=== PATIENT | male | born 1985 | race Caucasian/White ===

== ENCOUNTER 2023-12-16 19:53 | Inpatient (IN) | payer BC, SELFPAY ==
[2023-12-16] VITALS (10 sets, daily range): BP systolic 124–166; BP diastolic 67–99; BMI 33.2; BMI 32.3
--- NOTE | 2023-12-16 12:12 | ED.GENMED ---
History of Present Illness
General
Chief Complaint: Fever
Source: patient
Exam Limitations: none
Time Seen by Provider: 12/16/23 12:00
Nursing documentation reviewed up to this point in time: agreed with
History of Present Illness
History of Present Illness:
Patient presents to ED secondary to a 3-day history of persistent posterior head and neck pain along with fever noted this morning. Denies photophobia. Patient reports 1 vomiting episode today, along with decreased appetite. Denies sore throat.
Denies difficulty with swallowing. Denies coughing. Denies nausea, vomiting, or diarrhea. Denies rash. Denies dizziness. Denies blurred vision. Denies loss of sensation or weakness. However, patient is also complaining of back, hip pain, as
well as left arm tingling sensation, since onset of his symptoms.
Past History
Past History
ED Past Medical History: None
ED Past Surgical History: Orthopedic and Tonsilectomy
Patient has exhibited threatening behavior?: No
Social History
Tobacco: Non-smoker
Personal: Single
Living: with family
Employment: Employed
Review of Systems
Review of Systems
Allergies reviewed?: Yes
All Other Systems: ROS reviewed and negative except as documented in HPI and ROS
Constitutional: Reports fever
EENT: Reports no symptoms; Denies sore throat or runny nose
Respiratory: Reports no symptoms; Denies cough or trouble breathing
Cardiac: Reports no symptoms; Denies chest pain
ABD/GI: Reports no symptoms; Denies abdominal pain, nausea, vomiting or diarrhea
: Reports no symptoms
Musculoskeletal: Reports joint pain, muscle pain, neck pain and back pain
Skin: Reports no symptoms
Neurological: Reports no symptoms
Phy Exam
Physical Exam
Physical Exam:
Physical Exam
General: mild distress, not acutely ill. febrile. nontoxic appearing
Head: nc/at. eomi
Neck: supple. diffuse neck tenderness noted, with limited ROM. normal pharynx
Heart: s1/s2 regular rate and rhythm, no murmur. equal radial pulses.
Lungs: no acute respiratory distress. clear bilaterally
Abdomen: normal bowel sounds. not tender.
Neuro: alert and oriented. no focal neurological deficits. normal speech.
Skin: no rash
Psychiatric: well kept. interactive and cooperative
Extremities: no edema. no calf tenderness.
Course
Orders/Labs/Results
Orders:
Orders
12/16/23 11:54
EKG [Electrocardiogram (*1)] Urgent
Reason for Study: Shortness of Breath
12/16/23 12:02
COVID-19 Antigen Urgent
Source: Nasal Swab
Complete Blood Count/With Diff Urgent
Comprehensive Metabolic Panel Urgent
12/16/23 12:11
0.9% Sodium Chloride 500 ml [Nss] 500 ml IV BOLUS
Acetaminophen [Tylenol] 650 mg PO NOW STA
Ketorolac [Toradol] 30 mg IV NOW STA
12/16/23 12:30
Monotest Urgent
12/16/23 14:46
0.9% Sodium Chloride 1000 ml [Nss] 1,000 ml IV BOLUS
HYDROmorphone [Dilaudid] 0.5 mg IV NOW STA
12/16/23 17:47
Add On- LAB Urgent
Tests Added?: CSF for West Nile Virus
12/16/23 17:50
CefTRIAXone [Rocephin] 2,000 mg IV NOW STA
12/16/23 17:59
Sterile Water [Sterile Water For Injection] 20 ml .ROUTE .STK-MED
12/16/23 18:03
Vancomycin [Vancocin] 2,000 mg 0.9% Sodium Chloride 500 ml [Nss] 500 ml IV NOW
12/16/23 18:24
CSF Cell Count Urgent
Date Specimen was Collected: 12/16/23
Time Specimen was Collected: 17:57
Comment: Tube #1 and Tube #4
CSF Culture with Gram Stain Urgent
JAYLA Source: Csf
Specimen Description:
Date Specimen was Collected: 12/16/23
Time Specimen was Collected: 17:57
Comment: Tube #2
Meningitis Panel, CSF by PCR Urgent
JAYLA Source: Csf
Specimen Description:
12/16/23 18:25
CSF Cell Count X Urgent
Date Specimen was Collected: 12/16/23
Time Specimen was Collected: 17:57
CSF VDRL Reflex To Titer [S] Urgent
Date Specimen was Collected: 12/16/23
Time Specimen was Collected: 17:57
Lyme PCR, DNA [S] Urgent
West Nile Virus, IgM, CSF [S] Urgent
Comment: ADD ON
12/16/23 18:26
Spinal Fluid Glucose Urgent
Date Specimen was Collected: 12/16/23
Time Specimen was Collected: 18:26
Comment: Tube #3
Spinal Fluid Protein Urgent
Date Specimen was Collected: 12/16/23
Time Specimen was Collected: 18:26
Comment: Tube #3
12/16/23 18:55
CT Head W/o Iv Contrast Stat
Comment:
Reason For Exam: headache
12/16/23 18:56
HYDROmorphone [Dilaudid] 1 mg IV NOW STA
12/16/23 19:02
Admit/Transfer Patient As Directed
Co-Sign Provider:
Level of Care: Inpatient admission
Assign to:: Telemetry
Physician / Group: Subha
Transfer to: Telemetry
Diagnosis: STEELE r/o meningitis
Reason for Telemetry: Other
Other Reason for Telemetry: sepsis
Date to Stop Telemetry: 12/18/23
Time to Stop Telemetry: 11:00
Reason for Hospitalization: steele r/o meningitis
Expected length of stay greater than two midnights?: Yes
ELOS- Estimated Length of Stay in days: 2
I certify the patient meets the requirements for IP care: Yes
PRN Pain Medication Management As Directed
May give lesser potent ordered pain med per pt: Yes
preference::
Protocol:: Medication orders for pain may be administered in a
manner that supports deferring to patient preference
when the pt is:
- Requesting an ordered lesser potent pain medication.
Least to most potent pain medications are defined
as: acetaminophen < NSAID < tramadol < opioids
(morphine, oxycodone, hydromorphone).
- Requesting a lesser dose of the same medication IF
ORDERED.
- Requesting a less intrusive route of administration
if both routes are prescribed by the provider (PO <
IV).
12/16/23 19:03
Code Status As Directed
Resuscitation Status: Full Code
12/16/23 19:10
Rapid Strep Group A Urgent
JAYLA Source: Throat/Pharynx
Specimen Description:
Date Specimen was Collected: 12/17/23
Time Specimen was Collected: 07:45
12/16/23 19:18
CR Chest Portable - 1 View Urgent
Comment:
Reason For Exam: fever, r/o pna
Reason Study Needs to be Portable: Unable to Transport
12/16/23 19:35
HydrALAZINE [Apresoline] 5 mg IV Q6HPRN PRN
12/16/23 20:00
Flush (0.9% Sodium Chloride) [Flush (Nss)] See Dose Instructions IV PER PROTOCOL
12/16/23 20:12
Influenza A+B Rapid Molecular Stat
JAYLA Source: Nasal Swab
Specimen Description:
12/16/23 20:25
Lactate Level [Lactic Acid] Urgent
Blood Culture Routine
JAYLA Source: Blood/Venous
Specimen Description:
Blood Culture Urgent
JAYLA Source: Blood/Venous
Specimen Description:
12/16/23 20:35
0.9% Sodium Chloride 1000 ml [Nss] 1,000 ml IV 100 mls/hr
Acetaminophen [Tylenol] 650 mg PO Q4HPRN PRN
Bisacodyl [Dulcolax] 10 mg RECTAL [id number] PRN
Calcium Carbonate Chewable [Tums] 1 tablet PO QIDPRN PRN
Docusate W/Senna [Senokot-S] 1 tablet PO BIDPRN PRN
HYDROmorphone [Dilaudid] 0.5 mg IV Q4HPRN PRN
Ketorolac [Toradol] 10 mg IV Q6HPRN PRN
Ondansetron Injectable [Zofran] 4 mg IV Q6HPRN PRN
Polyethylene Glycol Powder [Miralax] 17 grams PO DAILYPRN PRN
12/16/23 20:35
INFECTIOUS DISEASE CONSULT Routine
Consulting Provider: Apolonia Correia
Was physician already notified: Yes
Reason for consult: sepsis, suspect meningitis
Activity As Directed
Activity Level: As Tolerated
Neurological Checks As Directed
Frequency: Per unit guidelines
Vital Signs As Directed
Frequency: Per unit guidelines
DX Deep Vein Thrombosis Video Routine
12/16/23 22:00
Dexamethasone Sod Phosphate [Decadron] 10 mg IV Q6H
12/17/23 Breakfast
Regular
At Your Request: Full Participation
Complete Blood Count/With Diff IN AM
CefTRIAXone [Rocephin] 2,000 mg IV Q12H
12/17/23 18:00
Enoxaparin Sodium [Lovenox] 40 mg SC QPM
12/18/23 11:00
DC Protocol for Telemetry ONCE
Abnormal Lab Results
12/16/23 12/16/23
12:02 18:26
RBC 4.35 L 10^6/uL
(4.70-6.10)
MCH 32.9 H pg
(27.0-31.0)
MPV 10.8 H fL
(7.4-10.4)
Absolute Neuts (auto) 7.0 H 10^3/uL
(1.4-6.5)
Absolute Lymphs (auto) 0.5 L 10^3/uL
(1.2-3.4)
Neutrophils % 87.5 H %
(42.2-75.2)
Lymphocytes % 5.9 L %
(20.5-51.1)
Glucose 102 H mg/dl
(70-99)
ALT 57 H U/L
(0-50)
CSF Total Protein 85 H mg/dl
(12-60)
12/16/23 12:02
12/16/23 12:02
Vital Signs
Initial and Last Documented VS:
Initial Vital Signs
Temp Pulse Resp BP Pulse Ox
102.2 F H 101 16 166/98 98
12/16/23 11:30 12/16/23 11:30 12/16/23 11:30 12/16/23 11:30 12/16/23 11:30
Last Documented Vital Signs
Temp Pulse Resp BP Pulse Ox
97.9 F 84 18 134/68 95
12/17/23 03:21 12/17/23 03:21 12/17/23 03:21 12/17/23 03:21 12/17/23 03:21
Procedures
Lumbar Puncture
Indication for procedure:: fever/headache/neck stiffness
Procedure completed by: Caleb Howell M.D.
Consent form signed: Yes
Anesthesia/sedation: 1% Lidocaine
Preparation: cleaned with Betadine
Position: sitting
Needle Size: 22 gauge
Needle Type: Lumbar Needle
Number of attempts: 1
Dressing applied to puncture site: bandaid
Complications: none
MDM/Problems Addressed
MDM/Problems Addressed:
Although patient remains neurologically intact with mild improvement symptoms, patient continues to exhibit persistent severe headache along with neck pain. In light of patient's other body ache and joint pain, symptoms likely viral in nature.
However, difficult to exclude meningitis entirely. After discussion with patient and family, decision made to perform lumbar puncture. Risks and benefits discussed with patient.
Procedure consent on the chart.
Lumbar puncture successful after 1 attempt with clear fluid. Spinal fluid analysis ordered. Empiric antibiotic coverage via vancomycin/Rocephin ordered.
Patient remains hemodynamically and neurologically intact after procedure.
Critical care statement: A total of 40 minutes of critical care time was provided for this patient. This includes management of unstable vital signs, evaluation of the patient at bedside, reviewing the patient's pertinent medical records, review of
old EKGs and review of pertinent medical records. This time with separate from time utilized to perform the aforementioned documented procedures
*Critical Care Note
Total Time (30-74mins, 75-104mins- exclusive of procedures): Not Applicable
ED Attending Note
-
Portions of this chart may have been created with voice recognition software.� Occasional wrong word or��sound alike� substitutions may have occurred due to the inherent limitations of voice recognition software.
Discharge Plan
Departure
Patient Disposition: Admit
Date of Disposition: 12/16/23
Time of Disposition: 17:54
Admit to: Med/Surg
Presentation/result/management discussed w/ accepting MD/DO: Hospitalist
Discharge Problem:
Headache, Fever
Interventions
Interventions:
*Risk Screen - Suicide Last Done: 12/16/23 20:51
*General Assessment Last Done: 12/16/23 11:52
*Neglect/Abuse Screening Last Done: 12/16/23 11:52
ED- Fall Risk Assessment Last Done: 12/16/23 14:06
*ED COVID-19 Vaccine History Last Done: 12/16/23 11:52
*Nursing Disposition Last Done: 12/16/23 20:00
ED- Neurological Assessment Last Done: 12/16/23 14:06
ED-Skin Assessment Last Done: 12/16/23 14:06
Discharge Date and Time
Discharge Date/Time: 12/16/23 20:35
[2023-12-16] MEDS: TYLENOL 650 MG PO (12:21)
[2023-12-16] MEDS: TORADOL 30 MG IV (12:21)
[2023-12-16] MEDS: NSS 500 IV (12:22)
[2023-12-16 12:25] LABS: ALT (SGPT) 57 U/L (0-50); AST (SGOT) 57 U/L (17-59); Albumin 4.8 g/dl (3.5-5.0); Alkaline Phosphatase 112 U/L (38-126); Blood Urea Nitrogen 11 mg/dl (9-20); Calcium 9.8 mg/dl (8.4-10.2); Carbon Dioxide 24 mmol/L (22-30); Chloride 105 mmol/L (98-107); Estimated Creatinine Clearance 119 ml/min; Glucose 102 mg/dl (70-99); Potassium 4.4 mmol/L (3.5-5.1); Sodium 142 mmol/L (135-145); Total Bilirubin 1.3 mg/dl (0.2-1.3); Total Protein 7.6 g/dl (6.3-8.2); eGFR > 60.00
[2023-12-16 12:29] LABS: COVID-19 Antigen Negative (Negative)
[2023-12-16 12:30] LABS: % Basophils 0.3 % (0-2); % Immature Granulocytes 0.4 % (0-0.5); % Lymphocytes 5.9 % (20.5-51.1); % Monocytes 5.9 % (1.7-9.3); % Neutrophils 87.5 % (42.2-75.2); Absolute Lymphocytes 0.5 10^3/uL (1.2-3.4); Absolute Monocytes 0.5 10^3/uL (0.1-0.6); Hematocrit 40.5 % (39.0-52.0); Hemoglobin 14.3 g/dL (13.0-18.0); Mean Corp Hgb Conc. 35.3 g/dL (33.0-37.0); Mean Corpuscular Hgb 32.9 pg (27.0-31.0); Mean Corpuscular Volume 93.1 fL (80.0-94.0); Mean Platelet Volume 10.8 fL (7.4-10.4); Nucleated Red Blood Cells % 0 % (-); Platelet Count 219 10^3/uL (130-400); Red Blood Cell Count 4.35 10^6/uL (4.70-6.10); Red Cell Dist. Width 12.4 % (11.5-14.5); White Blood Cell Count 7.9 10^3/uL (4.8-10.8)
[2023-12-16 13:40] LABS: Monotest Negative (Negative)
[2023-12-16] MEDS: NSS 1000 IV ×2 (15:05→22:37)
[2023-12-16] MEDS: DILAUDID 0.5 MG IV ×2 (15:05→21:08)
[2023-12-16] MEDS: ROCEPHIN 2000 MG IV (18:09)
--- NOTE | 2023-12-16 19:10 | HPS.HSE ---
Addendum entered and electronically signed by Leal Mascorro DO 12/16/23 19:46:
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 Would likely need screening for metal if MRI to be performed.
Original Note:
Family Physician
-
Family Physician: Danielle Rizo
Chief Complaint
-
Intractable STEELE x Sunday Night
History of Present Illness
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 Pt states Sunday he developped a frontal and posterior
headache (denying radiation). Pain 10/10, 'feels like im getting kicked in the head repeatedly.' States symptoms are more severe than prior migraines. Also endorses neck stiffness and midline back tenderness extending to lower back. Endorses
generalized weakness and limited PO intake. +nausea with 1episode of NBNB emesis today. Pain improved from a 10/10 to a 7/10 after dilaudid and toradol, now back to 9/10. Denies photophobia/phonophobia. Denies recent travel history or known insect
bites. does report that his nephew was recently sick with PNA about 1 week ago but otherwise no sick contacts.
Denies dizziness/LH, CP, palps, wheezing, cough, sob, abd pain, n/v/d/c, dysuria, calf or leg pain.
ER course: Pt presents Tmax 102.2-> 98.3, HR 101->84, RR 14-24, BP 166/98, other V.S.S. CBC/BMP wnl. ALT 57, other LFTs wnl. COVID (-). S/P LP with initiation of vanco/rocephin. Also given 1L NS bolus x 2, Tylenol 650mg, Dilaudid 0.5mg IV, and
Toradol 30mg IV in ER.
Medical History
Past Medical History
Past Medical History: Reports Other (Migraines, Pancreatitis)
Past Surgical History: Reports Other (Left Elbow Sx, Tonsilectomy, Left ACL/MCL repair, Right ACL/PCL repair)
Social History
Tobacco: Non-smoker
Alcohol: Occasional (social)
Drug: None
Personal:
Living: With Family
Family History
Family History: Other (Father with CAD s/p OK, HTN/HLD)
Allergies / Home Medications
Allergies reflects when Allergies were last updated in [facility].
Home Medications with original date entered in [facility]
Allergy/Medication List:
Allergies
Allergy/AdvReac Type Severity Reaction Status Date / Time
No Known Allergies Allergy Verified 12/16/23 11:33
Home Medications
acetaminophen 500 mg tablet (Tylenol Extra Strength) 1,000 mg PO Q6HPRN PRN mild pain/fever 12/16/23
calcium carbonate (Tums) 400 mg PO QIDPRN PRN stomach issues 12/16/23
ibuprofen 200 mg tablet 400 mg PO Q6HPRN PRN mild pain 12/16/23
Review of Systems
-
A 12 point ROS was completed and negative except as noted: Yes
Physical Exam
Vital Signs
Vital Signs
Temp Pulse Resp BP Pulse Ox
98.3 F 84 17 152/88 99
12/16/23 16:00 12/16/23 17:00 12/16/23 17:00 12/16/23 17:00 12/16/23 17:00
Physical Exam
General: Well Developed, Well Nourished and Other (Uncomfortable in apparent pain. )
HEENT: NormoCephalic, Atraumatic, Good Dentition, PERRLA, [place] Conjunctivae, No Ptosis and Other (+Midline neck tenderness. ); No Pharyngeal Erythema
Respiratory: Clear
Cardiac: S1/S2, Regular Rhythm and Tachycardia; No Murmur or Rub
GI: Soft, Non Tender, Non Distended and Normal Bowel Sounds; No Organomegaly
Rectal: Deferred by Provider
Genito-urinary: No costovertebral tender; No Gómez
Musculoskeletal: No Clubbing, No Cyanosis and No Edema
Skin: Warm and Dry; No Rash
Neuro: Awake, Alert, Oriented, AO x 3 and Other (General 4/5 weakness B/L LE. +kernig/brudzinski sign. )
Psych: Anxious
Laboratory Results
-
12/16/23 12:02
12/16/23 12:02
Laboratory Results
Total Bilirubin 1.3 mg/dl (0.2-1.3) 12/16/23 12:02
AST 57 U/L (17-59) 12/16/23 12:02
ALT 57 U/L (0-50) H 12/16/23 12:02
Alkaline Phosphatase 112 U/L (38-126) 12/16/23 12:02
Data Reviewed
-
Diagnostic Radiology: Image Personally Visualized and interpreted
Medical Tests (Nuc Med, Echo, EKG etc): Image Personally Visualized and interpreted (EKG: NSR @ 89bpm, No acute ischemic changes, Nonspecific ST/Twave change, QTC 411ms. )
Lab Data: Labs Reviewed by me
Impression/Plan
-
Intractable Headache / N / V / Hx Migraines
Sepsis / Fever
- Pt present +3/4 SIRS (Tmax 102.2, HR 101, RR 24, no leukocytosis) with intractable headache and concern for nuchal rigidity with (+) kernig/brudzinski; HD stable
- Assess other sources of infection - obtain Flu, rapid strep, blood cultures x and CXR for completeness. LA ordered
- COVID negative. Monospot negative.
- LP performed in ER, follow up fluid studies
- S/P vanco/rocephin in ER. Will continue with addition of acyclovir 100mg IV q8h and dexamethasone 10mg IV Q6h
- CT brain not obtained prior to LP, will obtain stat
- Consider contrast enhanced MRI pending results
- Continue Tylenol, Toradol, and Prn Dilaudid
- IVF. Prn antiemetics
- Consult Infectious Disease for evaluation
- Consider neurology consult as needed.
Hypertension
- Likely 2/2 intractable headache, monitor for improvement with treatment as above
- EKG unremarkable
- Prn hydralazine 5mg IV Q6h for SBP > 180mmHg in antihypertensive naive pt
Diet - Regular
DVT PPx - Lovenox
Code Status: Full
[2023-12-16 19:19] LABS: Spinal Fluid Glucose 57 mg/dl (40-70); Spinal Fluid Protein 85 mg/dl (12-60)
[2023-12-16] MEDS: VANCOCIN 540 MG IV (19:30)
[2023-12-16] MEDS: DILAUDID 1 MG IV (19:31)
[2023-12-16 20:23] LABS: CSF Tube # 4
[2023-12-16 20:28] LABS: CSF Color Other; CSF Tube # Clarity Hazy; Red Cell Count/CSF 2044 mm^3; White Blood Cell Count/CSF 0 mm^3 (0-5)
[2023-12-16 20:29] LABS: CSF Clarity Clear; CSF Color Colorless; CSF Tube # 1; Red Cell Count/CSF 758 mm^3; White Cell Count/CSF 1 mm^3 (0-5)
[2023-12-16 20:44] LABS: Lactic Acid 0.8 mmol/L (0.7-2.0)
--- NOTE | 2023-12-16 21:08 | PHA.VAN.IN ---
Assessment
- Assessment
Renal Function: Appears similar to baseline
Maximum Temperature: 102.2 F
Concomitant Antimicrobials: CEFTRIAXONE, ACYCLOVIR
AUC Dosing Plan
- Empiric Dosing
Initial / Loading Dose: VANCO 2000MG X1
Maintenance Regimen: VANCO 1500 MG Q12H
Estimated AUC (mcg*h/mL): 527
Estimated Peak (mcg*h/mL): 35.6
Estimated Trough (mcg/ml): 12
Estimated Half Life (H): 6.7
- Monitoring
No levels ordered at this time: CONSIDER LEVEL PRIOR TO 4TH MAINTENANCE DOSE
Pharmacokinetics Vancomycin I
- -
Patient Age: 38
Patient Sex: Male
Vancomycin Day #: 1
Indication: Head Batcher Infection
Requesting Provider: ELIZABETH
Height / Weight:
Height 5 ft 9 in
Actual Weight 99.082 kg
IBW in k.7
Adjusted BW in k
Pertinent Past Medical History: Migraines, Pancreatitis
- Vital Signs / Lab Results
Temp Pulse Resp BP Pulse Ox
97.6 F 87 18 146/73 94
12/16/23 20:41 12/16/23 20:41 12/16/23 20:41 12/16/23 20:41 12/16/23 20:41
Lab Results - Hematology
12/16/23
12:02
WBC 7.9
Lab Results - Chemistry
12/16/23
12:02
BUN 11
Creatinine 1.0
Estimated Creat Clear 119
Albumin 4.8
12/16/23
20:25
Lactic Acid 0.8
Microbiology Results
12/16/23 18:26 Gram Stain - Preliminary
Csf
12/16/23 18:24 Meningitis/Encephalitis Panel (PCR) - Final
Csf
12/16/23 20:12 Influenza Types A & B (SANDRA) - Final
Nasal Swab Negative for Influenza A & B, NAAT
Negative results must be combined with clinical observations
and patient history.
Nucleic Acid Amplification test (NAAT)performed on the
[employer] platform.
[2023-12-16] MEDS: ZOVIRAX INJECTION 114 MG IV (22:37)
[2023-12-16] MEDS: DECADRON 10 MG IV (22:37)
[2023-12-17] MEDS: DILAUDID 0.5 MG IV ×2 (02:58→20:25)
[2023-12-17 03:21] VITALS: BP 134/68
[2023-12-17] MEDS: DECADRON 10 MG IV ×4 (05:10→21:13)
[2023-12-17] MEDS: ZOVIRAX INJECTION 114 MG IV (05:10)
[2023-12-17] MEDS: VANCOCIN 300 ML IV (06:23)
[2023-12-17] MEDS: VANCOCIN 300 MG IV (06:23)
[2023-12-17] MEDS: ROCEPHIN 2000 MG IV (06:23)
[2023-12-17 06:45] VITALS: BP 128/67
[2023-12-17] MEDS: TORADOL 10 MG IV (08:02)
[2023-12-17] MEDS: FLUSH (NSS) 1 FLUSH IV (08:03)
[2023-12-17 08:43] LABS: Hematocrit 37.8 % (39.0-52.0); Hemoglobin 13.3 g/dL (13.0-18.0); Mean Corp Hgb Conc. 35.2 g/dL (33.0-37.0); Mean Corpuscular Hgb 33.8 pg (27.0-31.0); Mean Corpuscular Volume 96.2 fL (80.0-94.0); Mean Platelet Volume 10.9 fL (7.4-10.4); Platelet Count 209 10^3/uL (130-400); Red Blood Cell Count 3.93 10^6/uL (4.70-6.10); Red Cell Dist. Width 12.2 % (11.5-14.5); White Blood Cell Count 7.6 10^3/uL (4.8-10.8)
[2023-12-17 08:52] LABS: ALT (SGPT) 46 U/L (0-50); AST (SGOT) 41 U/L (17-59); Alkaline Phosphatase 95 U/L (38-126); Blood Urea Nitrogen 13 mg/dl (9-20); Carbon Dioxide 21 mmol/L (22-30); Chloride 105 mmol/L (98-107); Direct Bilirubin 0.3 mg/dl (0.0-0.4); Estimated Creatinine Clearance > 125 ml/min; Glucose 139 mg/dl (70-99); Potassium 4.5 mmol/L (3.5-5.1); Sodium 140 mmol/L (135-145); Total Bilirubin 0.8 mg/dl (0.2-1.3); Total Protein 6.7 g/dl (6.3-8.2); eGFR > 60.00
[2023-12-17 09:34] LABS: Absolute Neutrophils -Man Diff 6.8 10^3/uL (1.4-6.5); Band Neutrophils 13 % (0-3); Lymphocytes 8 % (20-51); Monocytes 2 % (2-9); Normal RBC Morphology Yes; Platelets Checked Yes; Segmented Neutrophils 77 % (42-75); Total Cells Counted 100
--- NOTE | 2023-12-17 10:49 | PHA.VAN.FU ---
Vancomycin Assessment / Plan
- Assessment
Renal Function: SCR Decreasing (1.0>0.7)
WBC's are: Trending Down (7.9>7.6)
In the past 24 hrs, patient has been: Febrile (Tmax 102.2 on 12/16/23 at 11:30, currently afebrile)
Concomitant Antimicrobials: Ceftriaxone, Acyclovir
- Dosing Plan
Continue: Vancomycin 1500mg IV Q12hrs
- Monitoring Plan
Peak Level: Ordered for 12/18/23 at 21:00
Trough Level: Ordered for 12/19/23 at 05:30
- Follow Up
Pharmacy will continue to follow.
Vancomycin Follow UP
- -
Patient Age: 38
Patient Sex: Male
Vancomycin Day #: 2
Indication: Residence Leasing Agent Infection
Requesting Provider: Dr. Bertha JOHNSON
Pertinent Antimicrobial Allergies:
No antibiotic allergies
Height / Weight:
Height 5 ft 9 in
Actual Weight 99.082 kg
IBW in k.7
Adjusted BW in k
Pertinent Past Medical History: Migraines, Pancreatitis
- Vital Signs / Lab Results
Temp Pulse Resp BP Pulse Ox
98.1 F 85 18 128/67 100
12/17/23 06:45 12/17/23 06:45 12/17/23 06:45 12/17/23 06:45 12/17/23 06:45
Lab Results - Hematology
12/16/23 12/17/23
12:02 07:30
WBC 7.9 7.6
Band Neutrophils 13 H
Lab Results - Chemistry
12/16/23 12/17/23
12:02 07:30
BUN 11 13
Creatinine 1.0 0.7
Estimated Creat Clear 119 > 125
Albumin 4.8 4.0
12/16/23
20:25
Lactic Acid 0.8
Microbiology Results
12/16/23 18:24 CSF Culture - Preliminary
Csf No Growth After 18-24 Hours
Gram Stain - Preliminary
12/17/23 07:47 Streptococcus Rapid Screen - Final
Throat/Pharynx Rapid Strep Screen (Group A) Negative
12/16/23 18:24 Meningitis/Encephalitis Panel (PCR) - Final
Csf
12/16/23 20:12 Influenza Types A & B (SANDRA) - Final
Nasal Swab Negative for Influenza A & B, NAAT
Negative results must be combined with clinical observations
and patient history.
Nucleic Acid Amplification test (NAAT)performed on the
[employer] platform.
--- NOTE | 2023-12-17 10:50 | W.PN.HOSP.TC ---
Addendum entered and electronically signed by Marquita Medina MD 12/17/23 13:59:
*in reviewing chest-x-ray there is a RLL Pneumonia
-antibiotics changed to ceftriaxone/Azithromycin
Original Note:
Today's Communication/Plan
-
see plan
Assessment / Plan
Assessment / Plan
Mr. Kip Mcdonough is a 38 yo man with hx migraine headaches, pancreatitis, possible remote SJS presents to the ER with headache over 48 hours with associated neck stiffness, midline back tenderness, nausea/vomiting. s/p LP in ER with CSF showing 0
WBC, many RBC, no xanthochromia. He was admitted for treatment meningitis.
Intractable Headache / N / V / Hx Migraines
Sepsis / Fever
- Pt present +3/4 SIRS (Tmax 102.2, HR 101, RR 24, no leukocytosis) with intractable headache and concern for nuchal rigidity with (+) kernig/brudzinski; HD stable
- flu, strep, covid negative, monospot negative
- meningitis panel negative
- awaiting testng for lyme, syphilis, [place]
- concern with number of RBC in tube, I texted neurosurgery who is less concerned given no Xanthochromia. I will order stat CTA (discussed with RN).
- continue antibiotics/antiviral
- ID consult
- neurology consult
- discussing case with neurosurgery
Hypertension
- Likely 2/2 intractable headache, monitor for improvement with treatment as above
- EKG unremarkable
- Prn hydralazine 5mg IV Q6h for SBP > 180mmHg in antihypertensive naive pt
Diet - Regular
DVT PPx - SCD
Code Status: Full
51 minutes spent on patient care
Anticipated Discharge: > 48 hours
Subjective/Interval History
-
Date of Service: December 17, 2023
continues to have headache, comes and goes. neck pain a little less
pins and needles in arm and + hip pain
Objective Data
-
Labs:
Laboratory Results
12/17/23
07:30
WBC 7.6
Hgb 13.3
Hct 37.8 L
Plt Count 209
Sodium 140
Potassium 4.5
Chloride 105
Carbon Dioxide 21 L
BUN 13
Creatinine 0.7
Glucose 139 H
Calcium 9.0
Total Bilirubin 0.8
AST 41
ALT 46
Alkaline Phosphatase 95
Vital Signs:
Vital Signs
Temp Pulse Resp BP Pulse Ox
98.1 F 85 18 128/67 100
12/17/23 06:45 12/17/23 06:45 12/17/23 06:45 12/17/23 06:45 12/17/23 06:45
I&O
12/16/23 12/17/23 12/18/23
06:59 06:59 06:59
Intake Total 3080 / 3080
Balance 3080 / 3080
Review of Systems
-
History Source: Patient
All other systems: Reviewed and negative
Physical Exam
-
General: Other (appears in pain 2/2 headache )
HEENT: PERRLA
Respiratory: Clear to Auscultation; Negative Wheezes
Cardiac: Regular Rhythm and S1/S2
GI: Soft and Nontender
Musculoskeletal: No Edema
Skin: Warm and Dry; Negative Rash
Neuro: AO x 3
Psych: Calm
Data Reviewed
-
Diagnostic Radiology: Report Reviewed by me
Labs: Labs Reviewed by me
[2023-12-17 11:15] VITALS: BP 118/68
--- NOTE | 2023-12-17 12:11 | CON.NEURO4 ---
Addendum entered and electronically signed by Pete Peña MD 12/18/23 20:59:
CSF Glucose 57. CSF Protein 85. CSF ID panel Negative.
Original Note:
Consultation - Neurology 4
-
CONSULTING PHYSICIAN: Pete Peña MD(Neurology)
REFERRING PHYSICIAN: Hospitalist
DICTATED BY: Pete Peña MD
DATE/TIME OF REQUEST: 12/17/2023
DATE/TIME OF CONSULTATION: 12/17/2023
Reason for Consultation: Headaches
History of Present Illness:
This is a 38 year old right handed male who has presented to the hospital with chief complaint of headaches. He gives a h/o chronic headaches since middle school. Headaches preceded by aura of scintillations and scotoma left visual field controlled
with Excedrin. Headaches throbbing bifrontal occurs monthly controlled with Excedrin.
Never on prophylactic. Never eval by Neurology. No family h/o migraines.
Pat was in his USOH till SundayDec 13. Started having a sore neck later developed occipital headaches. Throbbing pounding pain not relieved with Excedrin.
Headache worse with sitting up post LP
Came to ER on Sunday. Underwent LP. Traumatic tap RBC 4500. No WBC
On my exam pat c/o neck pain radiating into his left shoulder and left hand-tingling pins and needle localized to thumb and index finger
Past Medical History: Migraines
Surgical History: Left ACL/MCL repair Right ACL/PCL repair Left Elbow Sx
Family History: Son-Asthma
Social History: Lives at home with his and son
Allergies: None
Home Medications: Excedrin
Review of Symptoms:
Patient has fever, headache and shortness of breath.
�Per the HPI.�All systems are reviewed negative except above.
�-
Vital Signs:
The patient has a Temp 36.6 C Pulse 77 Resp 18 BP 118/68 Pulse Ox 92
Physical Exam:
The patient is febrile, heart sounds S1 and S2 are regular, and chest is decreased air entry on (R).
- If not clear, describe.
Neurologic Examination:
The patient is awake, alert and oriented x 3. He is able to follow commands and answer questions appropriately. There is no aphasia or dysarthria.
On cranial nerve assessment, pupils are 3 mm bilateral, round and reactive to light and accommodation. Visual valdes are full. Extraocular movements are intact. Facial sensations are intact and bilaterally symmetrical, there is no facial asymmetry.
Hearing is intact bilaterally to normal conversation volume. Tongue palate and uvula are midline. Sternocleidomastoid strengths are full bilaterally.
Motor strengths are 5/5 bilateral upper and lower extremities on medical research [place] scale. There is no drift or involuntary movement noted. Deep tendon reflexes are 2+ bilateral upper and lower extremities and Babinski is absent bilaterally.
Sensations of pain, touch, temperature and vibration are intact and bilaterally symmetrical. There was no extinction noted on double simultaneous stimulation. Coordination is intact by finger to nose bilaterally.
Lab Results:
Neuro Imaging: CT Head: WNL
CXR: Moderate to large airspace consolidation in the right lower lung consistent with pneumonia in the right lower and/or middle lobes. Enlarged right hilum suggesting reactive lymphadenopathy.
Impression:
Mr. SHANTI OLEARY is a 38 year old M who has presented to the hospital with (symptoms/chief complaint) of headaches with traumatic spinal tap.
Pat has new RLL Pneumonia
Differentials for the patient's presentation include:
1. Migraine
2. Cervical radiculopathy
3. Post LP headaches(CSF leak)
Recommendations:
1. ID consult for pneumonia
2. IV antibiotics as per ID recomm
3. Baclofen 10mg TID
4. Motrin 600-800mg prn
5. Amitriptyline 25mg Qhs
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
Discussed patient care with: ID, Hospitalist and patient
Allergies
-
Allergies
Allergy/AdvReac Type Severity Reaction Status Date / Time
No Known Allergies Allergy Verified 12/16/23 11:33
Vital Signs and Labs
-
Vital Signs and Labs:
Vital Signs
Temp Pulse Resp BP Pulse Ox
36.6 C 77 18 118/68 92
12/17/23 11:15 12/17/23 11:15 12/17/23 11:15 12/17/23 11:15 12/17/23 11:15
Lab Results
12/17/23 07:30
12/17/23 07:30
Sodium 140 mmol/L (135-145) 12/17/23 07:30
Potassium 4.5 mmol/L (3.5-5.1) 12/17/23 07:30
BUN 13 mg/dl (9-20) 12/17/23 07:30
Glucose 139 mg/dl (70-99) H 12/17/23 07:30
Calcium 9.0 mg/dl (8.4-10.2) 12/17/23 07:30
Medications
-
Active Medications
Generic Name Dose Route Start Last Admin
Trade Name Freq PRN Reason Stop Dose Admin
Acetaminophen 650 mg 12/16/23 20:35
Acetaminophen 325 Mg Tablet PO 01/13/24 20:34
Q4HPRN PRN
mild pain/STEELE/temp> 100.4F
Bisacodyl 10 mg 12/16/23 20:35
Bisacodyl 10 Mg Rectal Suppository RECTAL 01/13/24 20:34
[id number] PRN
constipation
Calcium Carbonate 1 tablet 12/16/23 20:35
Calcium Carbonate 500 Mg (Regular-Strength) Chew Tablet PO 01/13/24 20:34
QIDPRN PRN
stomach issues
Ceftriaxone Sodium 2,000 mg 12/17/23 06:00 12/17/23 06:23
Ceftriaxone 2,000 Mg/20 Ml Vial IV 2,000 mg
Q12H RAFIQ Administration
Dexamethasone Sodium Phosphate 10 mg 12/16/23 22:00 12/17/23 10:43
Dexamethasone (4 Mg/Ml) 20 Mg/5 Ml Vial IV 01/13/24 21:59 10 mg
Q6H RAFIQ Administration
Hydralazine HCl 5 mg 12/16/23 19:35
Hydralazine 20 Mg/Ml Vial IV 01/13/24 19:34
Q6HPRN PRN
SBP greater than 180 mmHg
Hydromorphone HCl 0.5 mg 12/16/23 20:35 12/17/23 02:58
Hydromorphone 0.5 Mg/0.5 Ml Syringe IV 12/30/23 20:34 0.5 mg
Q4HPRN PRN Administration
severe pain
Sodium Chloride 1,000 mls @ 100 mls/hr 12/16/23 20:35 12/16/23 22:37
Nss IV 1,000 mls
.Q10H RAFIQ Administration
Vancomycin HCl 1,500 mg/ 300 mls @ 200 mls/hr 12/17/23 06:00 12/17/23 06:23
Sodium Chloride 20 ml/ Sodium IV 300 mls
Chloride Q12H RAFIQ Administration
Protocol
Acyclovir Sodium 700 mg/ 114 mls @ 100 mls/hr 12/16/23 22:00 12/17/23 05:10
Sodium Chloride IV 12/26/23 21:59 114 mls
Q8H RAFIQ Administration
Ondansetron HCl 4 mg 12/16/23 20:35
Ondansetron 4 Mg/2 Ml Vial IV 01/13/24 20:34
Q6HPRN PRN
nausea and vomiting
Polyethylene Glycol 17 grams 12/16/23 20:35
Polyethylene Glycol Powder 17 Grams Packet PO 01/13/24 20:34
DAILYPRN PRN
constipation
Senna/Docusate Sodium 1 tablet 12/16/23 20:35
Docusate W/Senna (Shanita-Colace) Tablet PO 01/13/24 20:34
BIDPRN PRN
constipation
Sodium Chloride 0 flush 12/16/23 20:00 12/17/23 08:03
Sodium Chloride 0.9% (Flush) Syringe IV 01/13/24 19:59 1 flush
PER PROTOCOL RAFIQ Administration
Home Medications
�Medication �Instructions �Recorded
acetaminophen 500 mg tablet 1,000 mg PO Q6HPRN PRN mild 12/16/23
(Tylenol Extra Strength) pain/fever
calcium carbonate (Tums) 400 mg PO QIDPRN PRN stomach issues 12/16/23
ibuprofen 200 mg tablet 400 mg PO Q6HPRN PRN mild pain 12/16/23
--- NOTE | 2023-12-17 12:35 | CON.ID ---
Consultation
-
Date/Time Consultation Requested: December 16, 20232034
Date/Time Consultation Performed: December 17, 2023 1230
Requesting Provider: Dr. Lela Mascorro
Performing Provider: Dr Apolonia Correia
Reason for Consultation: STEELE, fever
Chief Complaint / Past History
Chief Complaint
Neck pain and headache
History of Present Illness
38-year-old male with history of migraine headaches who developed acute onset of neck pain/stiffness on Sunday, December 13. Pain radiated to the front and back of his head. Headache different from his migraines. Positive chills. He did not notice
fever at home until he came to the ER yesterday with temperature of 102.2. Positive bandemia 13%. He underwent LP then was started on vancomycin/ceftriaxone/acyclovir. The CSF fluid showed 0-1 white blood cells. Meningoencephalitis panel
negative. Antibiotics discontinued. Admission head CT negative. Chest x-ray shows right lower lobe pneumonia. Per she noted the patient has been coughing Sunday into Sunday. Patient denies sputum production. His 10-year-old son who has
asthma is also coughing. Recent visits to [facility] 2 weeks ago, and last weekend. Today he still has headache and stiff neck. No recent injury or neck strain. No mosquito bites.
Past History
Additional Past Medical History:
Migraine headaches
Pancreatitis
?h/o Strep toxic shock syndrome, in college
Left ACL/MCL repair
Right ACL/PCL repair
Left Elbow Sx
Allergy History:
No Known Allergies Allergy (Verified 12/16/23 11:33)
Medications Reviewed: Yes
Current Antibiotics:
Ceftriaxone 2g IV q12
Vancomycin -> dc'd
Acylovir -> dc'd
Social History
Tobacco: Non-Smoker
Alcohol: Occasional
Drug: None
Personal:
Living: With Family
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
Family History
Family History: Not Pertinent
Review of Systems
Review of Systems
HEENT: Headache; Negative Sinus Problems or Pharyngitis
Cardiovascular: Negative Chest Pain, Dyspnea or Edema
Respiratory: Cough; Negative Sputum Production
Gasteroenterology: Other (No diarrhea); Negative Nausea or Vomiting
Genital / Urological: Negative Dysuria or Flank Pain
Skin / Hair / Nails: Negative Rash
Neurological: Negative Dizziness
All systems: All other systems were reviewed and were negative
Vital Signs
Temp Pulse Resp BP Pulse Ox
97.9 F 77 18 118/68 92
12/17/23 11:15 12/17/23 11:15 12/17/23 11:15 12/17/23 11:15 12/17/23 11:15
Selected Entries
12/16/23
11:30
Temp 102.2 F H
Physical Exam
Physical Exam
Constitutional: Non-toxic
Head: Other (No frontal or maxillary sinus tenderness)
Eyes: No Conjunctival Hemorrhage and Sclera Anicteric
Pharynx: Benign
Cardiovascular: Regular Rate and S1/S2
Pulmonary: Coarse (Right base)
Gastrointestinal: Soft, Non Tender, Non Distended and Normal Bowel Sounds
Genito-Urinary: Negative CVA Tenderness
Extremities: Negative Edema
Neurological: AO x 3 and Other (Neck limited ROM due to pain)
Lab / Diagnostic Study Results
12/17/23 07:30
12/17/23 07:30
Abs Immat Gran (auto) 0.0 10^3/uL (0-0.05) 12/16/23 12:02
Absolute Neuts (auto) 7.0 10^3/uL (1.4-6.5) H 12/16/23 12:02
Absolute Lymphs (auto) 0.5 10^3/uL (1.2-3.4) L 12/16/23 12:02
Absolute Monos (auto) 0.5 10^3/uL (0.1-0.6) 12/16/23 12:02
Absolute Basos (auto) 0.0 10^3/uL (0-0.2) 12/16/23 12:02
Total Counted 100 12/17/23 07:30
Immature Gran % 0.4 % (0-0.5) 12/16/23 12:02
Neutrophils % 87.5 % (42.2-75.2) H 12/16/23 12:02
Lymphocytes % 5.9 % (20.5-51.1) L 12/16/23 12:02
Monocytes % 5.9 % (1.7-9.3) 12/16/23 12:02
Eosinophils % 0.0 % (0-6) 12/16/23 12:02
Basophils % 0.3 % (0-2) 12/16/23 12:02
Abs Neuts (Manual) 6.8 10^3/uL (1.4-6.5) H 12/17/23 07:30
Segmented Neutrophils 77 % (42-75) H 12/17/23 07:30
Band Neutrophils 13 % (0-3) H 12/17/23 07:30
Lymphocytes (Manual) 8 % (20-51) L 12/17/23 07:30
Lactic Acid 0.8 mmol/L (0.7-2.0) 12/16/23 20:25
Microbiology Results
Micro:
12/16/23 18:24 CSF Culture - Preliminary
Csf No Growth After 18-24 Hours
Gram Stain - Preliminary
12/17/23 07:47 Streptococcus Screen (JAYLA) - Pending
Throat/Pharynx Streptococcus Rapid Screen - Final
Rapid Strep Screen (Group A) Negative
12/16/23 18:24 Meningitis/Encephalitis Panel (PCR) - Final
Csf
12/16/23 20:12 Influenza Types A & B (SANDRA) - Final
Nasal Swab Negative for Influenza A & B, NAAT
Negative results must be combined with clinical observations
and patient history.
Nucleic Acid Amplification test (NAAT)performed on the
[employer] platform.
12/16/23 20:25 Blood Culture - Pending
Blood/Venous
12/16/23 20:25 Blood Culture - Pending
Blood/Venous
12/16/[address]: normal
12/16/23 CXR: Moderate to large airspace consolidation in the right lower lung consistent with pneumonia in the right lower and/or middle lobes. Enlarged right hilum suggesting reactive lymphadenopathy.
Assessment / Plan
# RLL CAP
# Fever, bandemia due to PNA
- Check urine Legionella and Strep pneumo antigens
- Decrease ceftriaxone dose to 1g IV q24.
- Add azithromycin 500mg po qd.
- Follow blood cx's.
- Follow temps, wbc.
# STEELE/neck stiffness.
-Infectious meningitis ruled out with CSF 0 to 1 wbc, cx neg to date, meningoencephalitis panel negative.
- Agree with dc abx's.
- Neurology following cervicalgia/migraines.
Care Review
Plan reviewed with: Physician (Dr. Freeman)
[2023-12-17] MEDS: MOTRIN 800 MG PO (15:08)
[2023-12-17 15:10] VITALS: BP 135/74
[2023-12-17] MEDS: ZITHROMAX 500 MG PO (15:14)
[2023-12-17] MEDS: NSS 1000 IV ×2 (15:15→23:42)
[2023-12-17] MEDS: LIORESAL 10 MG PO ×2 (15:15→21:14)
[2023-12-17 19:41] VITALS: BP 135/81
[2023-12-17 23:26] VITALS: BP 136/73
[2023-12-18] MEDS: DECADRON 10 MG IV ×4 (03:02→21:01)
[2023-12-18 03:28] VITALS: BP 132/80
[2023-12-18] MEDS: STERILE WATER FOR INJECTION 10 ML IV (05:04)
[2023-12-18] MEDS: ROCEPHIN 1000 MG IV (05:04)
[2023-12-18] MEDS: DILAUDID 0.5 MG IV (07:25)
[2023-12-18 08:29] VITALS: BP 132/81
[2023-12-18] MEDS: NSS 1000 IV (08:37)
[2023-12-18] MEDS: LIORESAL 10 MG PO (08:37)
[2023-12-18] MEDS: ZITHROMAX 500 MG PO (08:37)
[2023-12-18 08:55] LABS: % Basophils 0.1 % (0-2); % Immature Granulocytes 0.6 % (0-0.5); % Lymphocytes 4.9 % (20.5-51.1); % Monocytes 3.2 % (1.7-9.3); % Neutrophils 91.2 % (42.2-75.2); Absolute Immature Granulocytes 0.1 10^3/uL (0-0.05); Absolute Lymphocytes 0.5 10^3/uL (1.2-3.4); Absolute Monocytes 0.3 10^3/uL (0.1-0.6); Hematocrit 39.1 % (39.0-52.0); Hemoglobin 13.9 g/dL (13.0-18.0); Mean Corp Hgb Conc. 35.5 g/dL (33.0-37.0); Mean Corpuscular Hgb 33.8 pg (27.0-31.0); Mean Corpuscular Volume 95.1 fL (80.0-94.0); Mean Platelet Volume 10.8 fL (7.4-10.4); Nucleated Red Blood Cells % 0 % (-); Platelet Count 255 10^3/uL (130-400); Red Blood Cell Count 4.11 10^6/uL (4.70-6.10); Red Cell Dist. Width 12.1 % (11.5-14.5); White Blood Cell Count 9.9 10^3/uL (4.8-10.8)
[2023-12-18 09:10] LABS: Blood Urea Nitrogen 15 mg/dl (9-20); Calcium 9.4 mg/dl (8.4-10.2); Carbon Dioxide 22 mmol/L (22-30); Chloride 109 mmol/L (98-107); Estimated Creatinine Clearance > 125 ml/min; Glucose 129 mg/dl (70-99); Potassium 4.2 mmol/L (3.5-5.1); Sodium 144 mmol/L (135-145); eGFR > 60.00
--- NOTE | 2023-12-18 11:32 | W.PN.HOSP.TC ---
Today's Communication/Plan
-
see plan
Assessment / Plan
Assessment / Plan
Mr. Kip Mcdonough is a 38 yo man with hx migraine headaches, pancreatitis, possible remote SJS presents to the ER with headache over 48 hours with associated neck stiffness, midline back tenderness, nausea/vomiting. s/p LP in ER with CSF showing 0
WBC, many RBC, no xanthochromia.
Sepsis 2/2 PNA
-initial concern for meningitis s/p LP with negative findings
-continue Ceftriaxone/Azithro
-appreciate ID
-Legionella and Strep Pneumo negative
Headache
-patient came in with likely migraine/tension STEELE related to sepsis. He now has frontal headache worse with standing likely related to CSF leak
-continue tylenol/motrin PRN
-appreciate Neurology
-caffeine, abdominal binder, fluids (will give bolus now)
-he's eating and drinking OK
Hypertension
- Likely 2/2 intractable headache, monitor for improvement with treatment as above
- EKG unremarkable
RUE Swelling
-obtain US
Diet - Regular
DVT PPx - SCD
Code Status: Full
51 minutes spent on patient care
Anticipated Discharge: 24 - 48 hours
Subjective/Interval History
-
Date of Service: December 18, 2023
continues to have headache
characteristic of headache has changed since post LP
some lower back pain too
Objective Data
-
Labs:
Laboratory Results
12/18/23
07:54
WBC 9.9
Hgb 13.9
Hct 39.1
Plt Count 255 D
Sodium 144
Potassium 4.2
Chloride 109 H
Carbon Dioxide 22
BUN 15
Creatinine 0.7
Glucose 129 H
Calcium 9.4
Vital Signs:
Vital Signs
Temp Pulse Resp BP Pulse Ox
98.4 F 90 17 132/81 91
12/18/23 08:29 12/18/23 08:29 12/18/23 08:29 12/18/23 08:29 12/18/23 08:29
I&O
12/17/23 12/18/23 12/19/23
06:59 06:59 06:59
Intake Total 3080 / 3080 3500 / 3500
Balance 3080 / 3080 3500 / 3500
Review of Systems
-
History Source: Patient
All other systems: Reviewed and negative
Physical Exam
-
General: Other (appears in pain 2/2 headache )
HEENT: PERRLA
Respiratory: Clear to Auscultation; Negative Wheezes
Cardiac: Regular Rhythm and S1/S2
GI: Soft and Nontender
Musculoskeletal: No Edema
Skin: Warm and Dry; Negative Rash
Neuro: AO x 3
Psych: Calm
Data Reviewed
-
Diagnostic Radiology: Report Reviewed by me
Labs: Labs Reviewed by me
[2023-12-18] MEDS: NSS 500 IV (12:06)
[2023-12-18 12:19] VITALS: BP 139/84
[2023-12-18] MEDS: MAGNESIUM SULFATE 50 IV (12:22)
--- NOTE | 2023-12-18 13:13 | W.PN.ID1 ---
Date of Service
Date of Service: December 18, 2023
Today's Communication
- Continue ceftriaxone 1g IV q24 (d3) and azithromycin 500mg po qd (d2)
- At time of dc, transition to cefuroxime 500mg po bid and azithromycin 500mg po qd through 12/22.
Assessment / Plan
# RLL CAP
# Fever, bandemia resolved
- urine Legionella and Strep pneumo antigens neg
-bcx neg to date
- Continue ceftriaxone 1g IV q24 (d3) and azithromycin 500mg po qd (d2)
- At time of dc, transition to cefuroxime 500mg po bid and azithromycin 500mg po qd through 12/22.
# STEELE/neck stiffness.
-Infectious meningitis ruled out with CSF 0 to 1 wbc, cx neg to date, meningoencephalitis panel negative.
- Agree with dc abx's.
- Neurology following cervicalgia/migraines.
Chief Complaint
-: Pneumonia
Subjective / Review of Systems
STEELE/Neck pain better.
Cough dry.
Vital Signs / Physical Exam
Vital Signs
Vital Signs
Temp Pulse Resp BP Pulse Ox
97.9 F 85 16 139/84 94
12/18/23 12:19 12/18/23 12:19 12/18/23 12:19 12/18/23 12:19 12/18/23 12:19
Physical Exam
Constitutional: No Acute Distress
Cardiovascular: Regular Rate and S1/S2
Pulmonary: Rales (R base >L)
Gastrointestinal: Soft, Non Tender, Non Distended and Normal Bowel Sounds
Extremities: Negative Edema
Neurological: AO x 3 and Other (neck more supple)
Objective Data
Lab Data
Lab Results
12/18/23 07:54
12/18/23 07:54
Estimated Creat Clear > 125 ml/min 12/18/23 07:54
Lactic Acid 0.8 mmol/L (0.7-2.0) 12/16/23 20:25
Total Bilirubin 0.8 mg/dl (0.2-1.3) 12/17/23 07:30
AST 41 U/L (17-59) 12/17/23 07:30
ALT 46 U/L (0-50) 12/17/23 07:30
Alkaline Phosphatase 95 U/L (38-126) 12/17/23 07:30
Most recent labs reviewed.
Micro Results:
12/16/23 18:24 CSF Culture - Preliminary
Csf No Growth After 48 Hours
Gram Stain - Preliminary
12/17/23 07:47 Streptococcus Screen (JAYLA) - Preliminary
Throat/Pharynx Culture in Progress
Streptococcus Rapid Screen - Final
Rapid Strep Screen (Group A) Negative
12/17/23 18:17 Legionella Urinary Antigen - Final
Urine Negative for Legionella pneumophila Serogroup 1 antigen.
A negative result does not rule out the possiblity of
Legionella infection due to other serogroups or species of
Legionella. Clinical correlation is recommended.
Streptococcus pneumoniae Antigen (M - Final
Negative for Streptococcus pneumoniae antigen.
A negative result does not exclude infection with
Streptococcus pneumoniae. Clinical correlation is
recommended.
12/16/23 20:25 Blood Culture - Preliminary
Blood/Venous No Growth in 24 hours- Final report to follow
12/16/23 20:25 Blood Culture - Preliminary
Blood/Venous No Growth in 24 hours- Final report to follow
12/16/23 18:24 Meningitis/Encephalitis Panel (PCR) - Final
Csf
12/16/23 20:12 Influenza Types A & B (SANDRA) - Final
Nasal Swab Negative for Influenza A & B, NAAT
Negative results must be combined with clinical observations
and patient history.
Nucleic Acid Amplification test (NAAT)performed on the
[employer] platform.
12/16/[address]: normal
12/16/23 CXR: Moderate to large airspace consolidation in the right lower lung consistent with pneumonia in the right lower and/or middle lobes. Enlarged right hilum suggesting reactive lymphadenopathy.
--- NOTE | 2023-12-18 15:34 | CM ---
Patient seen bedside.
IA completed.
Patient lives with spouse and 3 sons.
2 story home, independent prior to admission.
Works, drives.
No VN in the past.
PCP; Dr Boo
Pharmacy: [facility]
Plan: home no needs.
[2023-12-18 16:53] VITALS: BP 137/86
[2023-12-18 19:46] VITALS: BP 146/80
[2023-12-18] MEDS: TORADOL 15 MG IV (20:51)
[2023-12-18 23:15] VITALS: BP 142/89
[2023-12-19 03:56] VITALS: BP 140/75
[2023-12-19] MEDS: DECADRON 10 MG IV ×2 (04:50→09:20)
[2023-12-19] MEDS: TESSALON PERLES 200 MG PO (05:00)
[2023-12-19] MEDS: STERILE WATER FOR INJECTION 10 ML IV (05:01)
[2023-12-19] MEDS: ROCEPHIN 1000 MG IV (05:01)
[2023-12-19 07:30] VITALS: BP 135/81
[2023-12-19] MEDS: LIDOCAINE 4% PATCH 1 PATCH TOPICAL (08:22)
[2023-12-19] MEDS: ZITHROMAX 500 MG PO (08:23)
[2023-12-19 11:00] VITALS: BP 136/75
--- NOTE | 2023-12-19 12:13 | W.PN.HOSP.TC ---
Today's Communication/Plan
-
OK for DC today
Assessment / Plan
Assessment / Plan
Mr. Kip Mcdonough is a 38 yo man with hx migraine headaches, pancreatitis, possible remote SJS presents to the ER with headache over 48 hours with associated neck stiffness, midline back tenderness, nausea/vomiting. s/p LP in ER with CSF showing 0
WBC, many RBC, no xanthochromia.
Sepsis 2/2 PNA
-initial concern for meningitis s/p LP with negative findings
-continue Ceftriaxone/Azithro --> OK for DC today on oral antibiotics
-appreciate ID
-Legionella and Strep Pneumo negative
Headache
-patient came in with likely migraine/tension STEELE related to sepsis. He now has frontal headache worse with standing likely related to CSF leak
-continue tylenol/motrin PRN
-appreciate Neurology
-caffeine, abdominal binder, fluids (will give bolus now)
-he's eating and drinking OK
Hypertension
- Likely 2/2 intractable headache, monitor for improvement with treatment as above
- EKG unremarkable
RUE superficial venous thrombosis
IMPRESSION: Occlusive thrombus involving the right basilic vein within the right upper arm.
-supportive care, warm compresses
Diet - Regular
DVT PPx - SCD
Code Status: Full
51 minutes spent on patient care
Anticipated Discharge: Today
Subjective/Interval History
-
Date of Service: December 19, 2023
headache 07/24, manageable
Objective Data
-
Vital Signs:
Vital Signs
Temp Pulse Resp BP Pulse Ox
98.2 F 86 20 136/75 92
12/19/23 11:00 12/19/23 11:00 12/19/23 11:00 12/19/23 11:00 12/19/23 11:00
I&O
12/18/23 12/19/23 12/20/23
06:59 06:59 06:59
Intake Total 3500 / 3500
Balance 3500 / 3500
Review of Systems
-
History Source: Patient
All other systems: Reviewed and negative
Physical Exam
-
General: Other (mild discomfort 2/2 headache )
HEENT: PERRLA
Respiratory: Clear to Auscultation; Negative Wheezes
Cardiac: Regular Rhythm and S1/S2
GI: Soft and Nontender
Musculoskeletal: No Edema
Skin: Warm and Dry; Negative Rash
Neuro: AO x 3 and Other (5/5 strength upper and lower extremities, no facial asymmetry, speech normal )
Psych: Calm
Data Reviewed
-
Diagnostic Radiology: Report Reviewed by me
Labs: Labs Reviewed by me
--- NOTE | 2023-12-19 12:24 | W.DS.TRANS ---
DC Summary - [employer]
-
Discharge Instructions:
Discharge Diagnosis/Procedures sepsis secondary to pneumonia, post lumbar
puncture headache
Diet Regular
Activity As tolerated
Driving Restrictions As prior to admission
Bathing Restrictions None
Instructions:
Stand-Alone Forms:
Changes to Home Medications: Yes
Discharge Medications:
DC Medications w/original date entered in [employer]
acetaminophen 500 mg tablet (Tylenol Extra Strength) 1,000 mg PO Q6HPRN PRN mild pain/fever 12/16/23
calcium carbonate (Tums) 400 mg PO QIDPRN PRN stomach issues 12/16/23
azithromycin 250 mg tablet 500 mg (2 x 250 mg) PO DAILY #2 tabs 12/19/23
baclofen 10 mg tablet 10 mg PO HSPRN PRN muscle spasm #10 tabs 12/19/23
cefuroxime axetil 500 mg tablet 500 mg PO BID #8 tabs 12/19/23
ibuprofen 200 mg tablet 600 mg (3 x 200 mg) PO Q6HPRN PRN mild pain #0 tabs 12/19/23
lidocaine 4 % topical patch 1 patch topical DAILY #14 ea 12/19/23
Home Medication Changes
You have 4 more days of Cefuroxime (first dose tomorrow) and 2 more days of Azithromycin (first dose tomorrow)
You may take Tylenol (1G once every 6-8 hours) alternating with Motrin for headache. Motrin dosing 600mg once every 6 hours or 800mg once every 8 hours. Always take Motrin with food. Do not take more than recommended dosing per 24 hours.
Keep right upper extremity elevated and apply warm compresses to help with swelling.
Follow up with your Primary Care Doctor within next week.
Pending Results: No
--- NOTE | 2023-12-19 13:00 | W.PN.ID1 ---
Date of Service
Date of Service: December 19, 2023
Today's Communication
At time of dc, transition to cefuroxime 500mg po bid and azithromycin 500mg po qd through 12/22.
Assessment / Plan
# RLL CAP
# Fever, bandemia resolved
- urine Legionella and Strep pneumo antigens neg
-bcx neg to date
- On ceftriaxone 1g IV q24 (d4) and azithromycin 500mg po qd (d3)
- At time of dc, transition to cefuroxime 500mg po bid and azithromycin 500mg po qd through 12/22.
# STEELE/neck stiffness.
-Infectious meningitis ruled out with CSF 0 to 1 wbc, cx neg to date, meningoencephalitis panel negative.
- Neurology following cervicalgia/migraines.
# RUE thrombus right basilic vein at previous pIV site.
- Continue warm compress.
Chief Complaint
-: Pneumonia
Subjective / Review of Systems
Cough exacerbates his STEELE. Neck pain better.
Vital Signs / Physical Exam
Vital Signs
Vital Signs
Temp Pulse Resp BP Pulse Ox
98.2 F 86 20 136/75 92
12/19/23 11:00 12/19/23 11:00 12/19/23 11:00 12/19/23 11:00 12/19/23 11:00
Physical Exam
Constitutional: No Acute Distress
Pulmonary: Coarse (bilateral bases)
Gastrointestinal: Soft, Non Tender and Non Distended
Wound: Other (R antecubital previous pIV site unremarkable)
Objective Data
Lab Data
Lab Results
12/18/23 07:54
12/18/23 07:54
Estimated Creat Clear > 125 ml/min 12/18/23 07:54
Lactic Acid 0.8 mmol/L (0.7-2.0) 12/16/23 20:25
Total Bilirubin 0.8 mg/dl (0.2-1.3) 12/17/23 07:30
AST 41 U/L (17-59) 12/17/23 07:30
ALT 46 U/L (0-50) 12/17/23 07:30
Alkaline Phosphatase 95 U/L (38-126) 12/17/23 07:30
Most recent labs reviewed.
Micro Results:
12/16/23 18:24 CSF Culture - Preliminary
Csf No Growth After 72 Hours
Gram Stain - Preliminary
12/17/23 07:47 Streptococcus Screen (JAYLA) - Final
Throat/Pharynx No Beta Hemolytic Streptococci Isolated
Streptococcus Rapid Screen - Final
Rapid Strep Screen (Group A) Negative
12/16/23 20:25 Blood Culture - Preliminary
Blood/Venous No Growth in 48 hours- Final report to follow
12/16/23 20:25 Blood Culture - Preliminary
Blood/Venous No Growth in 48 hours- Final report to follow
12/17/23 18:17 Legionella Urinary Antigen - Final
Urine Negative for Legionella pneumophila Serogroup 1 antigen.
A negative result does not rule out the possiblity of
Legionella infection due to other serogroups or species of
Legionella. Clinical correlation is recommended.
Streptococcus pneumoniae Antigen (M - Final
Negative for Streptococcus pneumoniae antigen.
A negative result does not exclude infection with
Streptococcus pneumoniae. Clinical correlation is
recommended.
12/16/23 18:24 Meningitis/Encephalitis Panel (PCR) - Final
Csf
12/16/23 20:12 Influenza Types A & B (SANDRA) - Final
Nasal Swab Negative for Influenza A & B, NAAT
Negative results must be combined with clinical observations
and patient history.
Nucleic Acid Amplification test (NAAT)performed on the
[employer] platform.
12/16/[address]: normal
12/16/23 CXR: Moderate to large airspace consolidation in the right lower lung consistent with pneumonia in the right lower and/or middle lobes. Enlarged right hilum suggesting reactive lymphadenopathy.
--- NOTE | 2023-12-19 13:09 | W.DCSUMMARY ---
Discharge Summary
Discharge Data
Date of Admission: 12/16/23
Date of Discharge: 12/19/23
-
Pending Results: No
Hospital Course
Discharging Physician : Dr. Marquita Medina
Disposition : Home
Primary care physician : Dr. Danielle Rizo
Principal Discharge diagnosis : tension headache in setting of sepsis secondary to community acquired pneumonia with complication of post- lumbar puncture headache
Hospital Course :
Mr. Kip Mcdonough is a 38 yo man with hx migraine headache, pancreatitis, remote SJS presents to the ER with headache x several days and associated malaise and general body aches. Triage vitals significant for temp 102.2, BP 166/98. Covid
negative. Given headache and high fever and LP was performed.
Patient's LP showed 0 WBC, meningitis PCR panel negative. RBC were elevated up to 2044, I discussed case with neurosurgery and ordered a CTA (results below); no evidence for intracranial cerebral aneurysm.
Patient was treated for CAP. He had no further fevers. Discharged to complete course with Cefuroxime and Azithromycin (through 12/23/23)
He had worsening frontal headache post LP, concern for CSF leak headache. Not a blood patch candidate given on-going infection (discussed with neurology). Pain treated with PRN Tylenol/Motrin. Caffeine encouraged and abdominal binder if helps.
He felt ready to go home today, headache improved to 4/10.
Time spent on disharge was 35 minutes.
Important imaging findings :
HEAD CT 12/16/23
IMPRESSION:
Normal.
CXR 12/16/23
IMPRESSION:
Moderate to large airspace consolidation in the right lower lung consistent with pneumonia in the right lower and/or middle lobes. Enlarged right hilum suggesting reactive lymphadenopathy.
HEAD/NECK CTA 12/17/23
IMPRESSION:
NECK CTA:
1. Severe tortuosity of the mid cervical segment of the left internal carotid artery.
2. Severe tortuosity of the distal cervical segment of the right internal carotid artery.
3. No CTA evidence for internal carotid artery stenosis or occlusion.
4. 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
HEAD CTA:
1. No CT evidence for abnormal leptomeningeal or pachymeningeal enhancement in the brain suggest acute meningitis.
2. No CTA evidence for large vessel intracranial arterial stenosis or occlusion.
3. No CTA evidence for intracranial cerebral aneurysm.
4. Mild Chiari I malformation.
5. Small central disc-osteophyte complex at C3/C4 causing minimal spinal cord compression.
Cervical Spine CT 12/18/23
IMPRESSION: Overall, mild degenerative changes of the cervical spine. See above narrative for detailed findings.
Previous CT angiography of the head and neck suggested low-lying cerebellar tonsils/Chiari I malformation. Contrast resolution at the craniocervical junction is relatively poor on this examination.
If further imaging evaluation is desired, MRI of the cervical spine would likely provide better soft tissue contrast.
Right Upper Extremity US 12/18/23
IMPRESSION: Occlusive thrombus involving the right basilic vein within the right upper arm.
Procedure findings :
Discharge Plan
-
Patient Disposition: Home (Routine Discharge)
Discharge Diagnosis/Procedures: sepsis secondary to pneumonia, post lumbar puncture headache
Diet: Regular
Activity: As tolerated
Driving Restrictions: As prior to admission
Bathing Restrictions: None
Referrals:
Johanna Ramsay CRNP [Specified Professional Personl] - in one to two weeks
Danielle Rizo MD [Family Provider] - in less than 1 week
Additional Discharge Medication Instructions: You have 4 more days of Cefuroxime (first dose tomorrow) and 2 more days of Azithromycin (first dose tomorrow)
You may take Tylenol (1G once every 6-8 hours) alternating with Motrin for headache. Motrin dosing 600mg once every 6 hours or 800mg once every 8 hours. Always take Motrin with food. Do not take more than recommended dosing per 24 hours.
Keep right upper extremity elevated and apply warm compresses to help with swelling.
Follow up with your Primary Care Doctor within next week.
Prescriptions:
New
lidocaine 4 % Adhesive Patch,Medicated
1 patch topical DAILY Qty: 14 0RF
azithromycin 250 mg Tablet
500 mg PO DAILY Qty: 2 0RF
Rx Instructions:
first dose morning 12/20/23
baclofen 10 mg Tablet
10 mg PO HSPRN PRN (Reason: muscle spasm) Qty: 10 0RF
cefuroxime axetil 500 mg Tablet
500 mg PO BID Qty: 8 0RF
Rx Instructions:
first dose morning of 12/20/23
Continued
acetaminophen [Tylenol Extra Strength] 500 mg Tablet
1,000 mg PO Q6HPRN PRN (Reason: mild pain/fever)
calcium carbonate [Tums] 200 mg calcium (500 mg) Tablet,Chewable
400 mg PO QIDPRN PRN (Reason: stomach issues)
Changed
ibuprofen 200 mg Tablet
600 mg PO Q6HPRN PRN (Reason: mild pain) Qty: 0 0RF
Discharge Orders:
Discharge Patient (As Directed); Ordered 12/19/23
Ordered By: Marquita Medina
Discharge Date and Time
Print Language: CHILEAN
[2023-12-19 15:24] VITALS: BP 146/85
[2023-12-20 02:49] LABS: CSF VDRL (T. pallidum) Non Reactive (Non Reactive)
[2023-12-20 09:27] LABS: West Nile Virus, IgM, CSF 0.01 IV (<=0.89)
[2023-12-20 23:42] LABS: Lyme Disease DNA by PCR Not Detected; Lyme Source CSF
== END 2023-12-19 15:52 | disposition home or self-care (01) | DRG 871 ==
LOC: 4 WEST ACU 19:53
PROVIDERS: ADMITTING PHYSICIAN Internal Medicine; ATTENDING PHYSICIAN Student in an Organized Health Care Education/Training Program; CONSULT PHYSICIAN Internal Medicine Infectious Disease; CONSULT PHYSICIAN Psychiatry & Neurology Neurology; EMERGENCY PHYSICIAN Emergency Medicine; FAMILY PHYSICIAN Internal Medicine
DX: A41.89 Other specified sepsis (principal); J18.9 Pneumonia, unspecified organism; G97.0 Cerebrospinal fluid leak from spinal puncture; Z11.52 Encounter for screening for COVID-19; I10 Essential (primary) hypertension; G97.1 Other reaction to spinal and lumbar puncture; Y84.4 Aspiration of fluid as the cause of abnormal reaction of the patient, or of later complication, without mention of misadventure at the time of the procedure
CPT/HCPCS: 62270; 70450; 70496; 70498; 71045; 72125; 80048; 80053; 82248; 82945; 83605; 84157; 85025; 86308; 86592; 86788; 87015; 87040; 87070; 87205; 87327; 87449; 87476; 87483; 87502; 87811; 87880; 87899; 89051; 93005; 93971; 96361; 96374; 96375; 99291; Q9967

== ENCOUNTER → 2024-01-09 13:15 | Outpatient (REF) | payer BC, SELFPAY | LOC: HWRAD 13:15 | PROVIDERS: ATTENDING PHYSICIAN Nurse Practitioner | DX: J18.9 Pneumonia, unspecified organism (principal) | CPT/HCPCS: 71046 ==